=== PATIENT | female | born 1955 | race Caucasian/White ===

== ENCOUNTER 2017-10-22 17:51 | Observation (INO) | payer MEDICARE, OTHER ==
--- NOTE | 2017-10-22 18:15 | ERPHSYRPT ---
<MELONY BHAGAT - Last Filed: 10/23/17 00:22> - History of Present Illness Exam Limitations: no limitations Timing/Duration: other (patient really won't be specific as to duration or nature of her problems) Associated Symptoms: other (patient just states she feels generally bad), No nausea, No vomiting, No abdominal pain, No shortness of breath, No heartburn, No diaphoresis, No cough, No chills, No chest pain, No fever, No headaches, No loss of appetite, No malaise, No rash, No syncope, No seizure, No weakness <TRISH CAROLINA - Last Filed: 10/23/17 07:13> - History of Present Illness Time Seen by Provider: 10/22/17 18:10 Physician History: In the interview with the patient the patient was very reluctant at first to talk to me. She finally told me that since the , the has been chasing her because of the secrets she knows. Her family is also trying to persecuted her. 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 She told me they took her from her home in [place]. She denies suicidal ideation but states she has wanted to hurt someone who hurt her babies before they were born. (MELONY BHAGAT) 62-year-old white female brought by the bat boy/girl's department patient apparently stopped by the bat boy/girl noted to be of somewhat confused didn't know where she was Patient when I asked her what is going on she says everything life is just bad, Patient states that "they don't want to help me "they don't want to pay for my medicines, patient really tends the counter every question I give her with generalized statements appears to feel persecuted. Past medical history includes thyroid problems, cancer of the thyroid, Past surgical history includes tubal ligation, gallbladder, thyroid surgery Social history occasional alcohol (TRISH CAROLINA) - Review of Systems Constitutional: Malaise, No Fever, No Chills, No Fatigue, No Lethargy, No Night Sweats, No Weakness, No Weight Loss Eyes: No Symptoms Ears, Nose, & Throat: No Symptoms Respiratory: No Cough, No Dyspnea Cardiac: No Chest Pain, No Edema, No Syncope Abdominal/Gastrointestinal: No Abdominal Pain, No Nausea, No Vomiting, No Diarrhea Genitourinary Symptoms: No Dysuria Musculoskeletal: No Back Pain, No Neck Pain Skin: No Rash Neurological: No Dizziness, No Focal Weakness, No Sensory Changes Psychological: Other (Patient feels persecuted feels like "they" will not help me or pay for my medicines) Endocrine: No Symptoms All Other Systems: Reviewed and Negative <TRISH CAROLINA Filed: 10/23/17 07:13> - Physical Exam General Appearance: other (well-developed well-nourished white female she is alert oriented to person year patient answers direct questions with statements which reflect feeling of persecution) Eye Exam: PERRL/EOMI, eyes nml inspection Ears, Nose, Throat Exam: normal ENT inspection, TMs normal, pharynx normal, moist mucous membranes Neck Exam: normal inspection, non-tender, supple, full range of motion Respiratory Exam: normal breath sounds, lungs clear, No respiratory distress Cardiovascular Exam: regular rate/rhythm, normal heart sounds, normal peripheral pulses Gastrointestinal/Abdomen Exam: soft, normal bowel sounds, No tenderness, No mass Back Exam: normal inspection, normal range of motion, No CVA tenderness, No vertebral tenderness Extremity Exam: normal inspection, normal range of motion, pelvis stable Neurologic Exam: alert, oriented x 3, cooperative, new car make ready worker II-XII nml as tested, normal mood/affect, nml cerebellar function, nml station & gait, sensation nml, No motor deficits Skin Exam: normal color, warm, dry, No rash SpO2 Interpretation: normal <TRISH CAROLINA Filed: 10/23/17 07:13> - Nursing Vital Signs Nursing Vital Signs: Initial Vital Signs Temperature 98.3 F 10/22/17 17:57 Pulse Rate 120 H 10/22/17 17:57 Respiratory Rate 18 10/22/17 17:57 Blood Pressure 154/97 10/22/17 17:57 O2 Sat by Pulse Oximetry 98 10/22/17 17:57 Pain Scale Pain Intensity 0 - Course Nursing assessment & vital signs reviewed: Yes EKG Interpreted by Me: RATE (86 bpm), Sinus Rhythm, Other (EKG, sinus rhythm 86 bpm indeterminate axis no acute ST or T wave changes noted) <TRISH CAROLINA Filed: 10/23/17 07:13> Ordered Tests: Active Orders 24 hr Category Date Time Status Up With Assistance ROUTINE Activity 10/23/17 02:16 Active Admit as Inpatient ROUTINE Care 10/23/17 02:16 Active Code Status Order ROUTINE Care 10/23/17 02:16 Active EKG-ER Only STAT Care 10/22/17 18:08 Completed IV Care Q6H Care 10/23/17 02:16 Active IV Insertion STAT Care 10/22/17 18:08 Completed Neuro Checks Q4H Care 10/23/17 02:[address] in Observation ROUTINE Care 10/23/17 02:16 Active Cardiac Diet Diet 10/23/17 Breakfast Active ACETAMINOPHEN Stat Lab 10/22/17 18:40 Completed CBC W DIFF Stat Lab 10/22/17 18:40 Completed CMP Stat Lab 10/22/17 18:40 Completed ETHYL ALCOHOL Stat Lab 10/22/17 18:40 Completed TSH [TSH, 3RD Generation] Stat Lab 10/22/17 19:10 Completed UA W/ MICROSCOPIC Stat Lab 10/22/17 18:40 Completed Urine Triage Profile Stat Lab 10/22/17 18:40 Completed Transfer Order Routine Transfer 10/23/17 Completed Medication Summary Generic Name Dose Route Start Last Admin Trade Name Freq PRN Reason Stop Dose Admin Acetaminophen 650 mg 10/23/17 02:16 Tylenol 325 Mg PO 11/22/17 02:15 Q4H PRN PRN PAIN AND/OR FEVER Lab/Rad Data: Laboratory Result Diagrams 10/22/17 18:40 10/22/17 18:40 Laboratory Results 10/22/17 10/22/17 10/22/17 Range/Units 19:10 18:40 18:40 WBC (4.0-10.5) K/mm3 RBC (4.1-5.4) M/mm3 Hgb (12.0-16.0) gm/dl Hct (35-47) % MCV (78-100) fl MCH (26-32) pg MCHC (32-36) g/dl RDW (11.5-14.0) % Plt Count (150-450) K/mm3 MPV (6-9.5) fl Gran % (36.0-66.0) % Eos # (Auto) (0-0.5) Absolute Lymphs (auto) (1.0-4.6) Absolute Monos (auto) (0.0-1.3) Lymphocytes % (24.0-44.0) % Monocytes % (0.0-12.0) % Eosinophils % (0.00-5.0) % Basophils % (0.0-0.4) % Absolute Granulocytes (1.4-6.9) Basophils # (0-0.4) Sodium (137-145) mmol/L Potassium (3.5-5.1) mmol/L Chloride (98-107) mmol/L Carbon Dioxide (22-30) mmol/L Anion Gap (5-15) MEQ/L BUN (7-17) mg/dL Creatinine (0.52-1.04) mg/dL Estimated GFR ML/MIN Glucose (74-106) mg/dL Calcium (8.4-10.2) mg/dL Total Bilirubin (0.2-1.3) mg/dL AST (14-36) U/L ALT (0-35) U/L Alkaline Phosphatase (38-126) U/L Serum Total Protein (6.3-8.2) g/dL Albumin (3.5-5.0) g/dL TSH 3rd Generation 141.000 H (0.47-4.68) mIU/L Ur Collection Type VOID Urine Color YELLOW (YELLOW) Urine Appearance CLEAR (CLEAR) Urine pH 5.0 (5-6) Ur Specific [place] 1.020 (1.005-1.025) Urine Protein NEGATIVE (Negative) Urine Ketones NEGATIVE (NEGATIVE) Urine Blood NEGATIVE (0-5) Morris/ul Urine Nitrite NEGATIVE (NEGATIVE) Urine Bilirubin NEGATIVE (NEGATIVE) Urine Urobilinogen NORMAL (0-1) mg/dL Ur Leukocyte Esterase 1+ (NEGATIVE) Urine Microscopic RBC 0-2 (0-2) /HPF Urine Microscopic WBC 5-10 (0-5) /HPF Ur Epithelial Cells MODERATE (FEW) /HPF Urine Bacteria RARE (NEGATIVE) /HPF Hyaline Casts 0-2 (0-2) /LPF Urine Culture Reflexed NO (NO) Urine Glucose NEGATIVE (NEGATIVE) mg/dL Urine Opiates Level NEGATIVE (NEGATIVE) Ur Methadone NEGATIVE (NEGATIVE) Acetaminophen (10-30) ug/ml Urine Barbiturates NEGATIVE (NEGATIVE) Ur Phencyclidine (PCP) NEGATIVE (NEGATIVE) Urine Amphetamine NEGATIVE (NEGATIVE) U Benzodiazepine Level NEGATIVE (NEGATIVE) Urine Cocaine NEGATIVE (NEGATIVE) Urine Marijuana (THC) NEGATIVE (NEGATIVE) Ethyl Alcohol (0-10) mg/dL Specimen Received 10/22/17 1850 10/22/17 10/22/17 Range/Units 18:40 18:40 WBC 8.2 (4.0-10.5) K/mm3 RBC 5.27 (4.1-5.4) M/mm3 Hgb 15.6 (12.0-16.0) gm/dl Hct 44.5 (35-47) % MCV 84.4 (78-100) fl MCH 29.6 (26-32) pg MCHC 35.1 (32-36) g/dl RDW 14.4 H (11.5-14.0) % Plt Count 215 (150-450) K/mm3 MPV 11.1 H (6-9.5) fl Gran % 64.3 (36.0-66.0) % Eos # (Auto) 0.08 (0-0.5) Absolute Lymphs (auto) 2.06 (1.0-4.6) Absolute Monos (auto) 0.75 (0.0-1.3) Lymphocytes % 25.3 (24.0-44.0) % Monocytes % 9.2 (0.0-12.0) % Eosinophils % 1.0 (0.00-5.0) % Basophils % 0.2 (0.0-0.4) % Absolute Granulocytes 5.24 (1.4-6.9) Basophils # 0.02 (0-0.4) Sodium 142 (137-145) mmol/L Potassium 3.8 (3.5-5.1) mmol/L Chloride 108 H (98-107) mmol/L Carbon Dioxide 22 (22-30) mmol/L Anion Gap 16.3 H (5-15) MEQ/L BUN 13 (7-17) mg/dL Creatinine 0.97 (0.52-1.04) mg/dL Estimated GFR > 60.0 ML/MIN Glucose 113 H (74-106) mg/dL Calcium 10.4 H (8.4-10.2) mg/dL Total Bilirubin 0.60 (0.2-1.3) mg/dL AST 33 (14-36) U/L ALT 24 (0-35) U/L Alkaline Phosphatase 92 (38-126) U/L Serum Total Protein 7.8 (6.3-8.2) g/dL Albumin 4.6 (3.5-5.0) g/dL TSH 3rd Generation (0.47-4.68) mIU/L Ur Collection Type Urine Color (YELLOW) Urine Appearance (CLEAR) Urine pH (5-6) Ur Specific [place] (1.005-1.025) Urine Protein (Negative) Urine Ketones (NEGATIVE) Urine Blood (0-5) Morris/ul Urine Nitrite (NEGATIVE) Urine Bilirubin (NEGATIVE) Urine Urobilinogen (0-1) mg/dL Ur Leukocyte Esterase (NEGATIVE) Urine Microscopic RBC (0-2) /HPF Urine Microscopic WBC (0-5) /HPF Ur Epithelial Cells (FEW) /HPF Urine Bacteria (NEGATIVE) /HPF Hyaline Casts (0-2) /LPF Urine Culture Reflexed (NO) Urine Glucose (NEGATIVE) mg/dL Urine Opiates Level (NEGATIVE) Ur Methadone (NEGATIVE) Acetaminophen < 10 L (10-30) ug/ml Urine Barbiturates (NEGATIVE) Ur Phencyclidine (PCP) (NEGATIVE) Urine Amphetamine (NEGATIVE) U Benzodiazepine Level (NEGATIVE) Urine Cocaine (NEGATIVE) Urine Marijuana (THC) (NEGATIVE) Ethyl Alcohol < 10 (0-10) mg/dL Specimen Received - Progress Discussed with .: Evelin Will see patient in: hospital (observation) Counseled pt/family regarding: lab results, diagnosis, need for follow-up <MELONY BHAGAT - Last Filed: 10/23/17 00:22> <TRISH CAROLINA - Last Filed: 10/23/17 07:13> - Progress Progress Note: 10/22/17 19:20 Pt care discussed and care accepted from Dr Carolina at 19:00. 10/22/17 21:33 Pt refuses tele-psych consult. ED now being sought from . ED placement will be a [facility] until a med-psych be can be found. Pt is from [place]. 10/22/17 22:[address] care [address] Waters who declines acceptance of pt and [facility]. 10/23/17 00:22 [address] were made to place pt without success. [facility] declines due to hypothyroidism. [facility] declines because pt refused to do tele-psych. [facility] declines because they have no psychiatrist. [facility] have an available med psych bed which may be in the morning. I once again discussed pt and the unavailability of transfer tonight with Dr Waters who now agrees to accept pt at [facility]. (MELONY BHAGAT) - Departure Time of Disposition: 00:26 Departure Disposition: Observation (per Dr Waters and pt is under emergency long term signed by Youth Court Judge Wu Trimble.) Critical Care Time: No <MELONY BHAGAT - Last Filed: 10/23/17 00:22> <TRISH CAROLINA - Last Filed: 10/23/17 07:13> - Departure Clinical Impression: Paranoid delusion, Hypothyroidism Condition: Fair
[2017-10-22 18:44] LABS: BASOPHIL % 0.2 % (0.0-0.4); Basophil (Absolute #) 0.02 (0-0.4); Eosinophil (Absolute #) 0.08 (0-0.5); Granulocyte Absolute (ANC) 5.24 (1.4-6.9); Granulocytes % 64.3 % (36.0-66.0); Hematocrit 44.5 % (35-47); Hemoglobin 15.6 gm/dl (12.0-16.0); Lymphocyte (Absolute #) 2.06 (1.0-4.6); Lymphocytes % 25.3 % (24.0-44.0); Mean Cell Volume 84.4 fl (78-100); Mean Corpuscular Hemoglobin 29.6 pg (26-32); Mean Corpuscular Hgb Concent. 35.1 g/dl (32-36); Mean Platelet Volume 11.1 fl (6-9.5); Monocyte (Absolute #) 0.75 (0.0-1.3); Monocytes % 9.2 % (0.0-12.0); Platelet Count 215 K/mm3 (150-450); Red Blood Count 5.27 M/mm3 (4.1-5.4); Red Cell Distribution Width 14.4 % (11.5-14.0); White Blood Count 8.2 K/mm3 (4.0-10.5)
[2017-10-22 19:18] LABS: Appearance CLEAR (CLEAR); Bilirubin NEGATIVE (NEGATIVE); Blood NEGATIVE Ery/ul (0-5); Glucose NEGATIVE (NEGATIVE); Ketones NEGATIVE (NEGATIVE); Leukocyte Esterase 1+ (NEGATIVE); Nitrite NEGATIVE (NEGATIVE); Protein,Urine Dip NEGATIVE (Negative); Urobilinogen NORMAL mg/dL (0-1)
[2017-10-22 19:19] LABS: Bacteria RARE /HPF (NEGATIVE); Epithelial Cells MODERATE /HPF (FEW); Hyaline Casts 0-2 /LPF (0-2); RBC 0-2 /HPF (0-2)
[2017-10-22 19:21] LABS: Amphetamine,Urine NEGATIVE (NEGATIVE); Barbiturate,Urine NEGATIVE (NEGATIVE); Benzodiazepine,Urine NEGATIVE (NEGATIVE); Cocaine,Urine NEGATIVE (NEGATIVE); Methadone,Urine NEGATIVE (NEGATIVE); Opiate,Urine NEGATIVE (NEGATIVE); PCP,Urine NEGATIVE (NEGATIVE); THC,Urine NEGATIVE (NEGATIVE)
[2017-10-22 19:28] LABS: ALBUMIN 4.6 g/dL (3.5-5.0); ALKALINE PHOSPHATASE 92 U/L (38-126); ANION GAP 16.3 MEQ/L (5-15); BLOOD UREA NITROGEN 13 mg/dL (7-17); CHLORIDE 108 mmol/L (98-107); Calcium 10.4 mg/dL (8.4-10.2); Carbon Dioxide 22 mmol/L (22-30); Creatinine 1 0.97 mg/dL (0.52-1.04); Glucose 113 mg/dL (74-106); Potassium 3.8 mmol/L (3.5-5.1); SGOT/AST 33 U/L (14-36); SGPT/ALT 24 U/L (0-35); SODIUM 142 mmol/L (137-145); Total Protein 7.8 g/dL (6.3-8.2)
[2017-10-22 19:33] LABS: ACETAMINOPHEN < 10 ug/ml (10-30); ETHYL ALCOHOL < 10 mg/dL (0-10)
[2017-10-22 23:39] VITALS: O2SAT 98
[2017-10-23] MEDS ORDERED: TYLENOL 325 MG PO PRN (02:16)
[2017-10-23 02:58] VITALS: BP 140/97; PULSE 88
[2017-10-23] MEDS ORDERED: SYNTHROID 100 MCG PO SCH (12:13)
--- NOTE | 2017-10-24 21:50 | PCM.SSS ---
History of Present Illness - Chief Complaint Chief Complaint: patient has delusions and confused History of Present Illness: is a 62 year old female.he patient was very reluctant at first to talk to me. She finally told me that since the , the has been chasing her because of the secrets she knows. Her family is also trying to persecuted her. 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 She told me they took her from her home in [place]. She denies suicidal ideation but states she has wanted to hurt someone who hurt her babies before they were born. 62-year-old white female brought by the floor finisher helper's department patient apparently stopped by the floor finisher helper noted to be of somewhat confused didn't know where she was Patient when I asked her what is going on she says everything life is just bad, Patient states that "they don't want to help me "they don't want to pay for my medicines, patient really tends the counter every question I give her with generalized statements appears to feel persecuted. - Review of Systems All Other Systems: Unable due to condition Medications & Allergies Home Medications: Home Medication List Unobtainable [Unobtainable] 10/23/17 [History Confirmed 10/23/17] - Past Medical History Past Medical History: Yes Endocrine Medical History: Hypothyroidism Musculoskelatal History: Fractures GI Medical History: Gallbladder Disease Comment: NECK AND BACK INJURY. recalled from ER. patient uncooperative, will not provide any information. - Female History Are you now?: No - Past Surgical History Past Surgical History: Yes GI Surgical History: Cholecystectomy - Social History Smoking Status: Current every day smoker Exposure to second hand smoke: No Alcohol: None Drug Use: none - Physical Exam General Appearance: no apparent distress, alert Neurologic Exam: alert, oriented x 3, cooperative, normal mood/affect, nml cerebellar function, nml station & gait, sensation nml, confusion, depressed mood/affect, No motor deficits Eye Exam: PERRL/EOMI, eyes nml inspection Ears, Nose, Throat Exam: normal ENT inspection, TMs normal, pharynx normal, moist mucous membranes Neck Exam: normal inspection, non-tender, supple, full range of motion Respiratory Exam: normal breath sounds, lungs clear, No respiratory distress Cardiovascular Exam: regular rate/rhythm, normal heart sounds, normal peripheral pulses Gastrointestinal/Abdomen Exam: soft, normal bowel sounds, No tenderness, No mass Back Exam: normal inspection, normal range of motion, No CVA tenderness, No vertebral tenderness Extremity Exam: normal inspection, normal range of motion, pelvis stable Skin Exam: normal color, warm, dry, No rash Lymphatic Exam: No adenopathy Assessment/Plan (1) Hypothyroidism Status: Acute Qualifiers: Hypothyroidism type: acquired Qualified Code(s): E03.9 - Hypothyroidism, unspecified Code(s): E03.9 - HYPOTHYROIDISM, UNSPECIFIED (2) Paranoid delusion Status: Acute Code(s): F22 - DELUSIONAL DISORDERS Hospital Summary - Hospital Course Hospital Course: Chief Complaint Diagnosis paranoid delusion, hypothyroidism Home Medications Medication Instructions Recorded Confirmed Last Taken Type Unobtainable [Unobtainable] 10/23/17 10/23/17 Unknown History Current Medications Discontinued Medications Generic Name Dose Route Start Last Admin Trade Name Freq PRN Reason Stop Dose Admin Acetaminophen 650 mg 10/23/17 02:16 Tylenol 325 Mg PO 11/22/17 02:15 Q4H PRN PRN PAIN AND/OR FEVER Levothyroxine Sodium 200 mcg 10/23/17 12:13 10/23/17 12:30 Synthroid 100 Mcg PO 11/22/17 12:12 Not Given QAM DIAMOND Intake & Output (Last 24 hours) 10/22/17 10/23/17 10/24/17 10/25/17 11:59 11:59 11:59 11:59 Weight 88.6 kg - Vitals & Intake/Output Vital Signs: Vital Signs Temperature 97.5 F 10/23/17 02:47 Pulse Rate 88 10/23/17 02:47 Respiratory Rate 18 10/23/17 02:47 Blood Pressure 140/97 10/23/17 02:47 O2 Sat by Pulse Oximetry 98 10/23/17 02:47 Intake & Output: Intake & Output 10/22/17 10/23/17 10/24/17 10/25/17 11:59 11:59 11:59 11:59 Weight 88.6 kg - Lab Result Diagrams: 10/22/17 18:40 10/22/17 18:40 - Procedures and Test Procedures and Tests throughout Hospitalization: Therapy Orders & Screens 10/23/17 02:58 Smoking Cessation Education ONCE Comment: Diagnosis: paranoid delusion, hypothyroidism Smoking Status: Current every day smoker Do you dip or chew tobacco: No - Discharge Discharge Date: 10/23/17 [facility] Condition: Stable Prescriptions: No Action Unobtainable [Unobtainable] Forms: Ambulance Transport Record, Transfer Record Inter-Agency
== END 2017-10-23 15:00 | disposition short-term general hospital (02) ==
LOC: ED 17:51 → UNDOADMIN 10-23 02:06 → ICU 10-23 02:06
PROVIDERS: ADMIT General Practice; ATTEND General Practice
DX: E03.9 Hypothyroidism, unspecified (principal); Z72.0 Tobacco use; F22 Delusional disorders
CPT/HCPCS: 36000; 36415; 80053; 80307; 81000; 84443; 85025; 93005; 99285; G0378; G0481; G0480